=== PATIENT | male | born 1975 ===

== ENCOUNTER → 2019-06-24 | Outpatient (REF) | payer SELFPAY ==
[2019-06-27 01:55] LABS: Internal QC Validated? YES +Cl - CLEAR BKGD
[2019-06-27 01:56] LABS: Internal QC Validated? YES +Cl - CLEAR BKGD; Monotest Negative (Negative); Monotest POSITIVE (Negative)
[2019-06-29 01:32] LABS: Internal QC Validated? YES +Cl - CLEAR BKGD; Monotest POSITIVE (Negative)
[2019-06-29 01:33] LABS: Internal QC Validated? YES +Cl - CLEAR BKGD; Monotest POSITIVE (Negative)
== END | disposition home or self-care (01) ==
LOC: LABSURVEY 13:58
PROVIDERS: Visit Provider Pathology Anatomic Pathology & Clinical Pathology
DX: Z00.00 Encounter for general adult medical examination without abnormal findings (principal)